=== PATIENT | male | born 1950 ===

== ENCOUNTER 2022-11-21 13:29 | Inpatient (IN) | payer MEDICARE ==
[2022-11-21] MEDS ORDERED: Ketorolac 60 MG/2 ML SDV IM ONE (13:51)
[2022-11-21] MEDS ORDERED: Ketorolac 30 MG/ML SDV IVPUSH ONE (14:08)
[2022-11-21] MEDS ORDERED: Ondansetron 4 MG/2 ML SDV IVPUSH ONE (14:09)
[2022-11-21] MEDS ORDERED: HYDROmorphone 2 MG/ML SDV IVPUSH ONE ×2 (14:09→15:04)
[2022-11-21] MEDS ORDERED: LORazepam 2 MG/ML SDV IVPUSH ONE (14:09)
[2022-11-21] MEDS ORDERED: HYDROmorphone 2 MG/ML Syringe IVPUSH ONE (16:19)
[2022-11-22] MEDS: Acetaminophen 325 MG Tab PO PRN ×2 (03:57→13:25)
[2022-11-22] MEDS: Acetaminophen/HYDROcodone 325-10 MG Tab PO PRN ×2 (08:29→17:39)
[2022-11-22] MEDS ORDERED: Cyclobenzaprine 10 MG Tab PO ONE (13:18)
[2022-11-22] MEDS ORDERED: Ketorolac 30 MG/ML SDV IVPUSH ONE (20:41)
[2022-11-23] MEDS: Ketorolac 60 MG/2 ML SDV IVPUSH PRN ×2 (08:58→21:06)
[2022-11-23] MEDS: Acetaminophen/HYDROcodone 325-10 MG Tab PO PRN (08:59)
[2022-11-23] MEDS ORDERED: diazePAM 5 MG/ML MDV ONE (13:02)
[2022-11-23] MEDS: Lisinopril 20 MG Tab PO SCH (17:25)
[2022-11-24] MEDS: Lisinopril 20 MG Tab PO SCH (07:51)
[2022-11-24] MEDS: Ketorolac 60 MG/2 ML SDV IVPUSH PRN (08:20)
[2022-11-24] MEDS ORDERED: Ketorolac 30 MG/ML SDV IVPUSH PRN (08:40)
[2022-11-24] MEDS: Acetaminophen/HYDROcodone 325-10 MG Tab PO PRN (13:08)
[2022-11-25] MEDS: Lisinopril 20 MG Tab PO SCH (07:38)
[2022-11-26] MEDS: Acetaminophen 325 MG Tab PO PRN (00:28)
[2022-11-26] MEDS: Lisinopril 20 MG Tab PO SCH (07:26)
== END 2022-11-26 09:23 | disposition home or self-care (01) | DRG 556 ==
LOC: LB.ED 13:29 → LB.MS 17:35 → OBSVTOIN 11-23 12:30
PROVIDERS: ADMIT Emergency Medicine; ATTEND Emergency Medicine
PROC: 0SSBXZZ Reposition Left Hip Joint, External Approach (ICD-10-PCS; principal; 2022-11-23)
DX: M25.552 Pain in left hip (principal); S73.002A Unspecified subluxation of left hip, initial encounter; X58.XXXA Exposure to other specified factors, initial encounter; Z86.19 Personal history of other infectious and parasitic diseases; M54.16 Radiculopathy, lumbar region; Z20.822 Contact with and (suspected) exposure to COVID-19; X50.0XXA Overexertion from strenuous movement or load, initial encounter; S76.012A Strain of muscle, fascia and tendon of left hip, initial encounter
CPT/HCPCS: 36415; 72100; 72220; 73502-LT; 73552-LT; 73700-LT; 80048; 85025; 96374; 96375; 97162-GP; 97530-GP; 99285-25; A0425; A0429; A9270-GY; J1170; J1885; J2060; J2405; J3360; U0002